=== PATIENT | male | born 1975 | race Caucasian/White ===

== ENCOUNTER → 2023-07-09 15:06 | Outpatient (REF) | payer BC, SELFPAY | LOC: HWRAD 15:06 | PROVIDERS: ATTENDING PHYSICIAN Student in an Organized Health Care Education/Training Program | DX: R74.8 Abnormal levels of other serum enzymes (principal); R89.9 Unspecified abnormal finding in specimens from other organs, systems and tissues | CPT/HCPCS: 76700 ==